=== PATIENT | female | born 2000 | race African-American/Black ===

== ENCOUNTER 2021-04-27 09:40 | Emergency (ER) | payer OTHER ==
[~2021-04-27] VITALS: Ht 165.1 cm; Wt 52.0 kg
[2021-04-27 11:01] LABS: BASOPHILS % 0.3 % (0.0-2.0); EOSINOPHILS % 1.1 % (0.0-5.0); HEMATOCRIT. 37.5 % (36.0-48.0); HEMOGLOBIN. 12.3 g/dL (12.0-16.0); LYMPHOCYTES % 18.2 % (20.0-50.0); MEAN CORPUSCULAR VOLUME 82.6 fL (81.0-99.0); MEAN PLATELET VOLUME 8.1 fl (7.4-10.4); MONOCYTES % 7.7 % (2.0-8.0); NEUTROPHILS % 72.7 % (40.0-76.0); PLATELET 195 x1000/uL (130-400); RED BLOOD CELL COUNT 4.54 mill/uL (4.2-5.4); RED CELL DISTRIBUTION WIDTH 13.6 % (11.6-14.6)
[2021-04-27 11:04] LABS: CHLORIDE 110 mEq/L (98-107)
[2021-04-27 11:50] VITALS: BP 110/60
[2021-04-27] MEDS ORDERED: ALBU6.7H9 INH (12:08)
== END 2021-04-27 12:37 | disposition home or self-care (01) ==
LOC: ER 09:40
DX: J45.901 Unspecified asthma with (acute) exacerbation (principal); L30.9 Dermatitis, unspecified; F12.10 Cannabis abuse, uncomplicated; Z88.2 Allergy status to sulfonamides
CPT/HCPCS: 36415; 71045; 80053; 81025; 83880; 84484; 85025; 85379; 93005; 99285

== ENCOUNTER 2021-05-29 16:53 | Emergency (ER) | payer OTHER ==
[~2021-05-29] VITALS: Ht 165.1 cm; Wt 54.0 kg
[~2021-05-29 16:53] MED LIST: ALBU6.7H9 INH
[2021-05-29 17:16] VITALS: BP 106/66
[2021-05-29] MEDS ORDERED: ACETAMINOPHEN 325MG TABLET PO ONE (17:30)
[2021-05-29] MEDS ORDERED: ACET-2708 MT (18:40)
== END 2021-05-29 18:57 | disposition home or self-care (01) ==
LOC: ER 16:53
DX: S99.812A Other specified injuries of left ankle, initial encounter (principal); S99.822A Other specified injuries of left foot, initial encounter; Y03.0XXA Assault by being hit or run over by motor vehicle, initial encounter; Y93.89 Activity, other specified; Y92.39 Other specified sports and athletic area as the place of occurrence of the external cause; Y99.0 Civilian activity done for income or pay; M79.662 Pain in left lower leg
CPT/HCPCS: 73590; 73610; 73630; 99284

== ENCOUNTER 2022-03-29 19:55 | Emergency (ER) | payer OTHER ==
[~2022-03-29] VITALS: Ht 162.6 cm; Wt 52.0 kg
[~2022-03-29 19:55] MED LIST changes: +ACET-2708 MT
[2022-03-29 20:10] VITALS: BP 113/63
[2022-03-29] MEDS ORDERED: KETOROLAC 60MG/2ML VIAL IM ONE (22:15)
[2022-03-29] MEDS ORDERED: IBUP-2028 MT (22:58)
== END 2022-03-29 23:10 | disposition home or self-care (01) ==
LOC: ER 19:55
DX: M79.671 Pain in right foot (principal); F12.10 Cannabis abuse, uncomplicated; J45.909 Unspecified asthma, uncomplicated; Z88.2 Allergy status to sulfonamides
CPT/HCPCS: 73630; 81025; 96372; 99283; J1885

== ENCOUNTER 2024-02-20 17:21 | Emergency (ER) | payer OTHER ==
[~2024-02-20] VITALS: Ht 162.6 cm; Wt 55.0 kg
[~2024-02-20 17:21] MED LIST changes: +ALBU6.7H3 INH; -ALBU6.7H9 INH; +IBUP-2028 MT
[2024-02-20 17:35] VITALS: O2SAT 97
[2024-02-20] MEDS: SODIUM CHLORIDE 0.9% 1,000 ML IV ONE (17:45)
[2024-02-20 20:26] LABS: HEMATOCRIT. 34.9 % (36.0-48.0); HEMOGLOBIN. 11.4 g/dL (12.0-16.0); MEAN CORPUSCULAR HEMOGLOBIN 27.6 pg (28.0-32.0); MEAN CORPUSCULAR HGB CONC 32.6 g/dL (31.0-37.0); MEAN CORPUSCULAR VOLUME 84.8 fL (81.0-99.0); MEAN PLATELET VOLUME 8.5 fl (7.4-10.4); PLATELET 179 x1000/uL (130-400); RED BLOOD CELL COUNT 4.12 mill/uL (4.2-5.4); WHITE BLOOD COUNT 5.6 x1000/uL (4.5-11.0)
[2024-02-20 20:30] LABS: DIFFERENTIAL COMMENT 1
[2024-02-20 20:31] LABS: CHLORIDE 106 mEq/L (98-107); POTASSIUM 3.3 mEq/L (3.5-5.1); SODIUM 137 mEq/L (136-145)
[2024-02-20 20:32] LABS: CALCIUM 8.8 mg/dL (8.7-10.4); CARBON DIOXIDE 25 mEq/L (21-32)
[2024-02-20 20:37] LABS: CREATININE 0.7 mg/dL (0.6-1.0); GLUCOSE 82 mg/dL (70-105); UREA NITROGEN BLOOD 12 mg/dL (9-23)
[2024-02-20 20:38] LABS: HCG SCREEN NEGATIVE
[2024-02-20 20:41] LABS: TROPONIN I HIGH SENSITIVITY < 4 ng/L (3.0-34)
[2024-02-20 20:49] LABS: PLATELET ESTIMATE NORMAL
[2024-02-20 21:33] VITALS: BP 125/82; PULSE 68; RESP 14; TEMP 37.00296; O2SAT 98
== END 2024-02-20 22:04 | disposition home or self-care (01) ==
LOC: ER 17:21
DX: T67.5XXA Heat exhaustion, unspecified, initial encounter (principal); E86.0 Dehydration; F12.10 Cannabis abuse, uncomplicated; Z88.2 Allergy status to sulfonamides; X58.XXXA Exposure to other specified factors, initial encounter; Y93.89 Activity, other specified; Y92.89 Other specified places as the place of occurrence of the external cause; Y99.8 Other external cause status
CPT/HCPCS: 99285; 96360; 71045; 80048; 84703; 85025; 84484; 36415; 93005; J7030